=== PATIENT | male | born 1990 | race Caucasian/White ===

== ENCOUNTER 2017-04-09 13:59 | Emergency (ER) | payer BC ==
[2017-04-09 14:03] VITALS: BP 143/95; PULSE 82; RESP 18; TEMP 97.8
[2017-04-09] MEDS ORDERED: ACETAMINOPHEN TAB 325 MG TAB PO STA (14:16)
[2017-04-09] MEDS ORDERED: IBUPROFEN 600 MG TAB PO STA (14:16)
[2017-04-09] MEDS ORDERED: DIPH,PERTUS(ACELL)TETVAC-LF 0.5 ML VIAL IM ONE (14:34)
--- NOTE | 2017-04-09 14:46 | XR ---
EXAMINATION TYPE: XR finger LT DATE OF EXAM: 04/09/2017 COMPARISON: NONE HISTORY: Pain TECHNIQUE: 3 views FINDINGS: I see no fracture nor dislocation. Joint spaces are normal. There is no sign of a foreign b sumaya. IMPRESSION: Negative left thumb exam.
--- NOTE | 2017-04-09 14:51 | ED ---
Wound/Laceration HPI - General Chief Complaint: Wound/Laceration Stated Complaint: Hand laceration Time Seen by Provider: 04/09/17 14:07 Source: patient Mode of arrival: ambulatory Limitations: no limitations - History of Present Illness Initial Comments: 26-year-old male patient presents to the emergency department today for evaluation of left thumb laceration. Patient states that he was a box of with utility knife when he slipped and cut his thumb. He states the laceration does involve the nail. He was able to get the bleeding under control. Patient is quite anxious. He denies any difficulty with range of motion of the thumb. Denies any other injuries. Patient denies any headache, neck pain, back pain, chest pain, shortness of breath, dizziness, weakness, abdominal pain, nausea, vomiting, or difficulties with bowel movements or urination. - Related Data Allergies Allergy/AdvReac Type Severity Reaction Status Date / Time No Known Allergies Allergy Verified 04/09/17 14:03 Review of Systems ROS Statement: Those systems with pertinent positive or pertinent negative responses have been documented in the HPI. ROS Other: All systems not noted in ROS Statement are negative. Past Medical History Past Medical History: No Reported History History of Any Multi-Drug Resistant Organisms: None Reported Past Psychological History: No Psychological Hx Reported Smoking Status: Current every day smoker Past Alcohol Use History: None Reported Past Drug Use History: None Reported General Exam Limitations: no limitations General appearance: alert, in no apparent distress, anxious, other (This is a well-developed, well-nourished adult male patient in no acute distress. Vital signs upon presentation were temperature 97.8F, pulse 82, respirations 18, blood pressure 143/95, pulse ox 100% on room air.) Eye exam: Present: normal appearance, PERRL, EOMI. Absent: scleral icterus, conjunctival injection, periorbital swelling Respiratory exam: Present: normal lung sounds bilaterally. Absent: respiratory distress, wheezes, rales, rhonchi, stridor Cardiovascular Exam: Present: regular rate, normal rhythm, normal heart sounds. Absent: systolic murmur, diastolic murmur, rubs, gallop, clicks Extremities exam: Present: full ROM, normal capillary refill, other (Patient has a 2 cm laceration noted to the left thumb extending from the pad of the thumb into the nail. Bleeding is controlled at this time. Skin is otherwise pink, warm, and dry. Cap refills less than 3 seconds. Radial pulses 2+ and equal bilaterally.). Absent: normal inspection, tenderness, pedal edema, joint swelling, calf tenderness Neurological exam: Present: alert, oriented X3, CN II-XII intact Psychiatric exam: Present: normal affect, normal mood Skin exam: Present: warm, dry, intact, normal color. Absent: rash Course Vital Signs 04/09/17 14:01 Temperature 97.8 F Pulse Rate 82 Respiratory 18 Rate Blood Pressure 143/95 O2 Sat by Pulse 100 Oximetry Procedures - Laceration Laceration #1 Consent Obtained: verbal consent Indication: laceration Site: hand (Left thumb) Size (cm): 2 Description: linear Depth: simple, single layer (Involves nail) Anesthetic Used: lidocaine 1% Anesthesia Technique: local infiltration Amount (mls): 3 Pre-repair: irrigated extensively Type of Sutures: nylon Size of Sutures: 5-0 Number of Sutures: 4 Technique: simple, interrupted Patient Tolerated Procedure: well, no complications Medical Decision Making - Medical Decision Making 26-year-old male patient presented to the emergency department today for evaluation of lacerations of left thumb. Physical examination did reveal a 2 cm laceration to the left thumb that did involve the nailbed. The nail was left in place, laceration was repaired as documented. Patient tolerated the procedure well. He was educated regarding wound care and suture care. He is instructed to return in 7 days for removal of stitches. He is instructed to monitor for signs or symptoms of infection. He is instructed to follow-up with his primary care physician if necessary in 1-2 days. He is instructed to return here immediately for any new, worsening, or concerning symptoms. He verbalizes understanding and agrees with this plan. - Radiology Data Radiology results: report reviewed, image reviewed 3 views of the left upper obtained and showed no fracture nor dislocation. Joint spaces are normal. There is no sign of a foreign body. Impression by Dr. Thurman shows negative left thumb exam. Disposition Clinical Impression: Laceration without foreign body of left thumb with damage to nail, initial encounter Disposition: HOME SELF-CARE Condition: Good Instructions: Care For Your Stitches (ED), Finger Laceration (ED) Additional Instructions: Return in 7 days to have your stitches removed. Wash wound twice daily with warm water and antibacterial soap. Keep wound clean and dry. Do not submerge in water. Limit use of the left hand is much as possible. Monitor for signs or symptoms of infection including but not limited to redness, swelling, drainage of pus, fever, or chills. Follow up with her primary care physician as needed. Return here immediately for any new, worsening, or concerning symptoms. Referrals: Moises Willis DO [Primary Care Provider] - 1-2 days Time of Disposition: 14:51
== END 2017-04-09 15:12 | disposition home or self-care (01) ==
LOC: EC 13:59
DX: S61.112A Laceration without foreign body of left thumb with damage to nail, initial encounter (principal); F17.200 Nicotine dependence, unspecified, uncomplicated; Z23 Encounter for immunization; W26.0XXA Contact with knife, initial encounter; Y93.89 Activity, other specified
CPT/HCPCS: 12001; 90471; 90715; 99283

== ENCOUNTER 2017-12-04 12:07 | Emergency (ER) | payer BC ==
[2017-12-04 12:18] VITALS: BP 125/78; PULSE 67; RESP 18; TEMP 98.2
[2017-12-04] MEDS ORDERED: methylPREDNISolone SOD SUCCI 125 MG/2 ML VIAL IM ONE (12:28)
--- NOTE | 2017-12-04 12:47 | ED ---
General Adult HPI - General Chief complaint: Skin/Abscess/Foreign Body Stated complaint: RASH Time Seen by Provider: 12/04/17 12:19 Source: patient, RN notes reviewed, old records reviewed Mode of arrival: ambulatory Limitations: no limitations - History of Present Illness Initial comments: This is a 27-year-old male present emergency department complaint of rash for the past 2 days. Patient reports the rash initially started over the right antecubital fossa. He reports that it was very pruritic. He reports he try to wash it seems like the rash has not spread into his axilla, to the left arm., Groin, and his lower back. Patient reports he works in for; to (do) [employer]. He reports he cut down trees one week ago. He denies any fevers or chills. It up with a cortisone cream over the area with little relief. - Related Data Previous Rx's Medication Instructions Recorded Loratadine [Claritin] 10 mg PO DAILY #7 tab 12/04/17 diphenhydrAMINE [Benadryl] 25 mg PO TID PRN #20 capsule 12/04/17 predniSONE 50 mg PO DAILY #7 tablet 12/04/17 Allergies Allergy/AdvReac Type Severity Reaction Status Date / Time No Known Allergies Allergy Verified 04/09/17 14:03 Review of Systems ROS Statement: Those systems with pertinent positive or pertinent negative responses have been documented in the HPI. ROS Other: All systems not noted in ROS Statement are negative. Past Medical History Past Medical History: No Reported History History of Any Multi-Drug Resistant Organisms: None Reported Additional Past Surgical History / Comment(s): "varicillis vein" surgery to penis Past Psychological History: No Psychological Hx Reported Smoking Status: Current every day smoker Past Alcohol Use History: None Reported Past Drug Use History: None Reported General Exam - General Exam Comments Initial Comments: This Patient is a 27-year-old male. Alert and oriented. No acute distress. Limitations: no limitations General appearance: alert, in no apparent distress Head exam: Present: atraumatic, normocephalic, normal inspection Eye exam: Present: normal appearance, PERRL, EOMI. Absent: scleral icterus, conjunctival injection, periorbital swelling ENT exam: Present: normal exam, mucous membranes moist Neck exam: Present: normal inspection. Absent: tenderness, meningismus, lymphadenopathy Respiratory exam: Present: normal lung sounds bilaterally. Absent: respiratory distress, wheezes, rales, rhonchi, stridor Cardiovascular Exam: Present: regular rate, normal rhythm, normal heart sounds. Absent: systolic murmur, diastolic murmur, rubs, gallop, clicks GI/Abdominal exam: Present: soft, normal bowel sounds. Absent: distended, tenderness, guarding, rebound, rigid Extremities exam: Present: normal inspection, full ROM, normal capillary refill. Absent: tenderness, pedal edema, joint swelling, calf tenderness Back exam: Present: normal inspection Neurological exam: Present: alert, oriented X3, CN II-XII intact Psychiatric exam: Present: normal affect, normal mood Skin exam: Present: warm, dry, intact, normal color, rash (Erythematous macular rash with sporadic papules over the right forearm extending into the axilla. Across the chest and posterior aspect of his neck. He has evidence of the similar rash over the left forearm and axilla. Rash is consistent with the groin as well. 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 All the areas that Patient has a rash seemed to be exposed from where he could've been in contact with poison fidelia or other type the tree swellings work. He's bruits or masses extremity.. He did take a hot shower and seemed to make the rash worse. This demonstrated Patient to contact dermatitis most likely a reaction to poison fidelia or poison oak. Patient was given IM slight Medrol and prescription for steroids and antihistamines. Discussed close follow-up with primary care physician. Return parameters were discussed. Disposition Clinical Impression: Contact dermatitis Disposition: HOME SELF-CARE Condition: Good Instructions: Contact Dermatitis (ED), Poison Fidelia (ED) Additional Instructions: Patient advised to take the steroids as prescribed. Follow-up with primary care physician. Return to emergency department if any alarming signs or symptoms occur. Prescriptions: diphenhydrAMINE [Benadryl] 25 mg PO TID PRN #20 capsule PRN Reason: Itching Loratadine [Claritin] 10 mg PO DAILY #7 tab predniSONE 50 mg PO DAILY #7 tablet Is patient prescribed a controlled substance at d/c from ED?: No Referrals: Moises Willis DO [Primary Care Provider] - 1-2 days Time of Disposition: 12:41
== END 2017-12-04 12:57 | disposition home or self-care (01) ==
LOC: EC 12:07
DX: L25.9 Unspecified contact dermatitis, unspecified cause (principal); F17.200 Nicotine dependence, unspecified, uncomplicated
CPT/HCPCS: 99283; 96372; J2930

== ENCOUNTER 2022-11-18 15:46 | Emergency (ER) | payer BC ==
[2022-11-18 16:15] VITALS: TEMP 98.3
[2022-11-18] MEDS ORDERED: KETOROLAC 15 MG/ML 1 ML VIAL IM STA (16:30)
[2022-11-18] MEDS ORDERED: ONDANSETRON ODT 4 MG TAB PO STA (16:30)
[2022-11-18 18:18] LABS: Appearance,Urine Clear (Clear); Bilirubin,Urine Negative (Negative); Blood,Urine Negative (Negative); Color,Urine Light Red; Glucose,Urine (UA) Negative (Negative); Ketones,Urine 1+ (Negative); Leukocyte Esterase,Urine Small (Negative); Mucus,Urine Few /hpf; Nitrite,Urine Negative (Negative); Protein,Urine 1+ (Negative); RBC,Urine 6 /hpf (0-5); Specific Gravity,Urine 1.027 (1.001-1.035); Squamous Epithelial Cell,Urine <1 /hpf (0-4); Urobilinogen,Urine <2.0 mg/dL (<2.0); WBC,Urine 1 /hpf (0-5)
--- NOTE | 2022-11-18 19:14 | CT ---
EXAMINATION TYPE: CT abdomen pelvis wo con DATE OF EXAM: 11/18/2022 HISTORY: R flank pain CT DLP: 521.5 mGycm. Automated Exposure Control for Dose Reduction was Utilized. TECHNIQUE: CT scan of the abdomen and pelvis is performed without oral or IV contrast. COMPARISON: NONE FINDINGS: Within the limitations of a non-contrast study, the following observations are made. LUNG BASES: No significant abnormality is appreciated. LIVER/GB: No significant abnormality is appreciated. PANCREAS: No significant abnormality is seen. SPLEEN: No significant abnormality is seen. ADRENALS: No significant abnormality is seen. KIDNEYS: There is moderate right hydronephrosis and hydroureter down to the level of the sacral promo ntory where there is a 7 mm intraureteral calcification. The distal right ureter is unremarkable, as is the urinary bladder. The left kidney and left upper and lower collecting systems are normal. BOWEL: No significant abnormality is seen. GENITAL ORGANS: No gross abnormality seen. LYMPH NODES: No greater than 1cm abdominal or pelvic lymph nodes are appreciated. OSSEOUS STRUCTURES: No significant abnormality is seen. OTHER: No significant additional abnormality is seen. IMPRESSION: Moderate right obstructive uropathy secondary to 7 mm ureteral calcification at the level of the sacr al promontory.
--- NOTE | 2022-11-18 19:31 | ED ---
Abdominal Pain HPI - General Chief Complaint: Abdominal Pain Stated Complaint: R SideBack Pain, poss Kidney Stone Time Seen by Provider: 11/18/22 16:19 Source: patient Mode of arrival: ambulatory Limitations: no limitations - History of Present Illness Initial Comments: 32-year-old male presenting with chief complaint of right-sided flank pain and nausea. Patient has history of kidney stones. States this feels similar to previous kidney stones. No vomiting. No dysuria or hematuria. No chest pain or difficulty breathing. No fevers or chills. - Related Data Previous Rx's Medication Instructions Recorded Loratadine [Claritin] 10 mg PO DAILY #7 tab 12/04/17 diphenhydrAMINE [Benadryl] 25 mg PO TID PRN #20 capsule 12/04/17 predniSONE 50 mg PO DAILY #7 tablet 12/04/17 Ketorolac [Toradol] 10 mg PO Q6HR PRN #12 tab 11/18/22 Ondansetron Odt [Zofran Odt] 4 mg PO Q8HR PRN #20 tab 11/18/22 Tamsulosin [Flomax] 0.4 mg PO DAILY #10 cap 11/18/22 Allergies Allergy/AdvReac Type Severity Reaction Status Date / Time No Known Allergies Allergy Verified 11/18/22 16:14 Review of Systems ROS Statement: Those systems with pertinent positive or pertinent negative responses have been documented in the HPI. ROS Other: All systems not noted in ROS Statement are negative. Past Medical History Past Medical History: No Reported History Additional Past Medical History / Comment(s): kidney stones History of Any Multi-Drug Resistant Organisms: None Reported Additional Past Surgical History / Comment(s): "varicillis vein" surgery to penis Past Psychological History: No Psychological Hx Reported Smoking Status: Current every day smoker Past Alcohol Use History: Occasional Past Drug Use History: None Reported General Exam Limitations: no limitations General appearance: alert, in no apparent distress Head exam: Present: atraumatic, normocephalic, normal inspection Eye exam: Present: normal appearance, EOMI Neck exam: Present: normal inspection, full ROM Respiratory exam: Present: normal lung sounds bilaterally. Absent: respiratory distress, wheezes, rales, rhonchi, stridor Cardiovascular Exam: Present: regular rate, normal rhythm, normal heart sounds. Absent: systolic murmur, diastolic murmur, rubs, gallop, clicks GI/Abdominal exam: Present: soft, tenderness. Absent: distended, guarding, rebound, rigid Neurological exam: Present: alert, oriented X3, CN II-XII intact Psychiatric exam: Present: normal affect, normal mood Skin exam: Present: warm, dry, intact, normal color. Absent: rash Course Vital Signs 11/18/22 11/18/22 16:12 19:47 Temperature 98.3 F Pulse Rate 59 L 74 Respiratory 20 18 Rate Blood Pressure 121/84 158/90 O2 Sat by Pulse 97 99 Oximetry Medical Decision Making - Medical Decision Making Was pt. sent in by a medical professional or institution (, PA, OPTICAL SYSTEMS ENGINEER, urgent care, hospital, or longterm...) When possible be specific @ -No Did you speak to anyone other than the patient for history (EMS, parent, family, police, friend...)? What history was obtained from this source @ -No Did you review nursing and triage notes (agree or disagree)? Why? @ -I reviewed and agree with nursing and triage notes Were old charts reviewed (outside hosp., previous admission, EMS record, old EKG, old radiological studies, urgent care reports/EKG's, longterm records)? Report findings @ -No old charts were reviewed Differential Diagnosis (chest pain, altered mental status, abdominal pain women, abdominal pain men, vaginal bleeding, weakness, fever, dyspnea, syncope, headache, dizziness, GI bleed, back pain, seizure, CVA, palpatations, mental health, musculoskeletal)? @ -MDM Differential Abdominal Pain Men: Appendicitis, cholecystitis, diverticulosis, ischemic bowel, pancreatitis, hepatitis, UTI, gastroenteritis, AAA, incarcerated hernia, bowel obstruction, constipation, inflammatory bowel, hepatitis, peptic ulcer disease, splenic infarction, perforated viscus, testicular torsion... This is not meant to be an all-inclusive list EKG interpreted by me (3pts min.). @ -As above X-rays interpreted by me (1pt min.). @ -None done CT interpreted by me (1pt min.). @ -Moderate right obstructive uropathy secondary to 7 mm ureteral calcification at the level of the sacral promontory U/S interpreted by me (1pt. min.). @ -None done What testing was considered but not performed or refused? (CT, X-rays, U/S, labs)? Why? @ -None What meds were considered but not given or refused? Why? @ -None Did you discuss the management of the patient with other professionals (professionals i.e. , PA, OPTICAL SYSTEMS ENGINEER, lab, RT, psych nurse, medical social worker, botany technician, teacher, hydrological technical officer, briefcase sewer)? Give summary @ -No Was smoking cessation discussed for >3mins.? @ -No Was critical care preformed (if so, how long)? @ -No Were there social determinants of health that impacted care today? How? (Homelessness, low income, unemployed, alcoholism, drug addiction, transportation, low edu. Level, literacy, decrease access to med. care, prison, rehab)? @ -No Was there de-escalation of care discussed even if they declined (Discuss DNR or withdrawal of care, Hospice)? DNR status @ -No What co-morbidities impacted this encounter? (DM, HTN, Smoking, COPD, CAD, Cancer, CVA, ARF, Chemo, Hep., AIDS, mental health diagnosis, sleep apnea, morbid obesity)? @ -None Was patient admitted / discharged? Hospital course, mention meds given and route, prescriptions, significant lab abnormalities, going to OR and other pertinent info. @ -32-year-old male presents chief complaint of right-sided flank pain. History of kidney stones. Urine shows [address] showed a 7 mm stone. On reassessment patient reports improvement in his pain after Toradol and Zofran. He'll be discharged with Toradol, Zofran, and Flomax. Follow-up with PCP. Report back to ER with any new or worsening symptoms. Discussed return parameters and answered all questions. Patient conveyed verbal understanding and agreed to the plan. I discussed this case in detail with my attending Dr. Aj Undiagnosed new problem with uncertain prognosis? @ -No Drug Therapy requiring intensive monitoring for toxicity (Heparin, Nitro, Insulin, Cardizem)? @ -No Were any procedures done? @ -No Diagnosis/symptom? @ -Kidney stone Acute, or Chronic, or Acute on Chronic? @ -Acute Uncomplicated (without systemic symptoms) or Complicated (systemic symptoms)? @ -Uncomplicated Side effects of treatment? @ -No Exacerbation, Progression, or Severe Exacerbation? @ -No Poses a threat to life or bodily function? How? (Chest pain, [place], [place], pneumonia, PE, COPD, DKA, ARF, appy, cholecystitis, CVA, Diverticulitis, Homicidal, Suicidal, threat to staff... and all critical care pts) @ -No - Lab Data Lab Results 11/18/22 Range/Units 17:24 Urine Color Light Red Urine Appearance Clear (Clear) Urine pH 6.0 (5.0-8.0) Ur Specific [place] 1.027 (1.001-1.035) Urine Protein 1+ H (Negative) Urine Glucose (UA) Negative (Negative) Urine Ketones 1+ H (Negative) Urine Blood Negative (Negative) Urine Nitrite Negative (Negative) Urine Bilirubin Negative (Negative) Urine Urobilinogen <2.0 (<2.0) mg/dL Ur Leukocyte Esterase Small H (Negative) Urine RBC 6 H (0-5) /hpf Urine WBC 1 (0-5) /hpf Ur Squamous Epith Cells <1 (0-4) /hpf Urine Mucus Few H (None) /hpf Disposition Clinical Impression: Kidney stone Disposition: HOME SELF-CARE Condition: Good Instructions (If sedation given, give patient instructions): Kidney Stones (ED) Additional Instructions: Follow-up with PCP. Report back to ER with any new or worsening symptoms. Take medication as prescribed. Prescriptions: Tamsulosin [Flomax] 0.4 mg PO DAILY #10 cap Ketorolac [Toradol] 10 mg PO Q6HR PRN #12 tab PRN Reason: Pain Ondansetron Odt [Zofran Odt] 4 mg PO Q8HR PRN #20 tab PRN Reason: Nausea Is patient prescribed a controlled substance at d/c from ED?: No Referrals: None,Stated [Primary Care Provider] - 1-2 days Time of Disposition: 19:30
[2022-11-18 19:49] VITALS: BP 158/90; PULSE 74; RESP 18
== END 2022-11-18 19:49 | disposition home or self-care (01) ==
LOC: EC 15:46
DX: N20.0 Calculus of kidney (principal); F17.200 Nicotine dependence, unspecified, uncomplicated
CPT/HCPCS: 81001; 74176; 99284; 96372; J1885

== ENCOUNTER 2023-04-22 16:11 | Emergency (ER) | payer BC ==
[2023-04-22] MEDS ORDERED: METOCLOPRAMIDE 5 MG/ML 2 ML VIAL IVP STA (16:35)
[2023-04-22] MEDS ORDERED: KETOROLAC 15 MG/ML 1 ML VIAL IVP STA (16:36)
[2023-04-22] MEDS ORDERED: HYDROmorphone 0.5 MG/0.5 ML SYRINGE IVP STA ×2 (17:14→20:01)
[2023-04-22] MEDS ORDERED: SODIUM CHLORIDE 0.9% 1,000 ML IV STA (17:17)
[2023-04-22 17:45] LABS: HCT 42.3 % (39.0-53.0); MCH 31.9 pg (25.0-35.0); MCHC 35.4 g/dL (31.0-37.0); MCV 90.1 fL (80.0-100.0); Mean Platelet Volume 7.7; Platelet Count 270 k/uL (150-450); RBC 4.69 m/uL (4.30-5.90); RDW 11.7 % (11.5-15.5); WBC 13.8 k/uL (3.8-10.6)
[2023-04-22 17:53] LABS: ALT 61 U/L (4-49); AST 41 U/L (17-59); African American GFR (CKD) >90 (>60 ml/min/1.73 sqM); Albumin 4.6 g/dL (3.5-5.0); Alkaline Phosphatase 80 U/L (38-126); Anion Gap 14 mmol/L; Blood Urea Nitrogen 13 mg/dL (9-20); Calcium 9.8 mg/dL (8.4-10.2); Carbon Dioxide 23 mmol/L (22-30); Chloride 102 mmol/L (98-107); Glucose 128 mg/dL (74-99); Non-African American GFR(CKD) >90 (>60 ml/min/1.73 sqM); Potassium 4.1 mmol/L (3.5-5.1); Sodium 139 mmol/L (137-145); Total Bilirubin 1.6 mg/dL (0.2-1.3); Total Protein 7.9 g/dL (6.3-8.2)
--- NOTE | 2023-04-22 18:14 | CT ---
EXAMINATION TYPE: CT abdomen pelvis wo con DATE OF EXAM: 04/22/2023 COMPARISON: 11/18/2022 INDICATION: right side flank pain. hx of kidney stones. DLP: 570.2 mGycm, Automated exposure control for dose reduction was used. CONTRAST: 0 mL of Isovue 300. Study performed without Oral Contrast TECHNIQUE: Axial images were obtained from above the diaphragm to the pubic rami in the axial plane a t 5 mm thick sections. Reconstructed images are reviewed on the computer in the coronal plane. FINDINGS: Limited CT sections are obtained the lung bases. The lung bases are clear. CT ABDOMEN: Liver: Normal Spleen: Normal Pancreas: Normal Adrenal glands: The adrenal glands are normal. Gallbladder: Normal Kidneys: No masses are evident. There is a large right hydronephrosis with moderate hydroureter. Hydr oureter extends to the right ureterovesical junction. There is an obstructing 0.6 cm distal right ur eteral vesicle junction stone. No cysts are present. There is a nonobstructing punctate renal stone inferior pole left kidney Aorta: Normal Inferior vena cava: Normal. CT PELVIS: Loops of bowel within the abdomen and pelvis are normal. This study is without oral contrast limi ting follow-up evaluation. Appendix: Not identified. No dilated tubular structure or inflammatory change is evident. Urinary bladder: Normal. Genitourinary structures: Prostate is normal Osseous structures: No suspicious lytic or sclerotic lesions evident. IMPRESSION: 1. Marked right hydronephrosis and moderate right hydroureter secondary to an obstructing 0.6 cm daniel cification at the right ureteropelvic junction. 2. Punctate nonobstructing inferior pole left renal stone.
[2023-04-22 18:49] VITALS: RESP 18
[2023-04-22 20:25] LABS: Appearance,Urine Clear (Clear); Bilirubin,Urine Negative (Negative); Blood,Urine Moderate (Negative); Color,Urine Light Yellow; Glucose,Urine (UA) Negative (Negative); Ketones,Urine 1+ (Negative); Leukocyte Esterase,Urine Negative (Negative); Mucus,Urine Rare /hpf; Nitrite,Urine Negative (Negative); Protein,Urine Negative (Negative); RBC,Urine 7 /hpf (0-5); Specific Gravity,Urine 1.019 (1.001-1.035); Urobilinogen,Urine <2.0 mg/dL (<2.0); WBC,Urine 2 /hpf (0-5)
[2023-04-22] MEDS ORDERED: ACET/COD 300 MG/30 MG STARTER PACK 6 TAB BTL PO STA (21:06)
--- NOTE | 2023-04-22 21:06 | ED ---
Abdominal Pain HPI - General Chief Complaint: Abdominal Pain Stated Complaint: kidney stones Time Seen by Provider: 04/22/23 17:13 Source: patient, RN notes reviewed Mode of arrival: ambulatory Limitations: no limitations - History of Present Illness Initial Comments: Patient is a 32-year-old male presented ER with chief complaint of right flank pain. Patient states this started earlier today and is just increased. Patient does have a history of kidney stones. Patient endorses associated nausea and chills. Patient denies dysuria or frequency. He does state that he is having difficulty urinating. Patient also is reporting suprapubic abdominal pain. Patient denies any constipation/diarrhea, chest pain, shortness of breath, or fevers. - Related Data Previous Rx's Medication Instructions Recorded Loratadine [Claritin] 10 mg PO DAILY #7 tab 12/04/17 diphenhydrAMINE [Benadryl] 25 mg PO TID PRN #20 capsule 12/04/17 predniSONE 50 mg PO DAILY #7 tablet 12/04/17 Ketorolac [Toradol] 10 mg PO Q6HR PRN #12 tab 11/18/22 Ondansetron Odt [Zofran Odt] 4 mg PO Q8HR PRN #20 tab 11/18/22 Tamsulosin [Flomax] 0.4 mg PO DAILY #10 cap 11/18/22 Tamsulosin [Flomax] 0.4 mg PO DAILY #7 cap 04/22/23 Allergies Allergy/AdvReac Type Severity Reaction Status Date / Time No Known Allergies Allergy Verified 04/22/23 16:28 Review of Systems ROS Statement: Those systems with pertinent positive or pertinent negative responses have been documented in the HPI. ROS Other: All systems not noted in ROS Statement are negative. Past Medical History Past Medical History: No Reported History Additional Past Medical History / Comment(s): kidney stones History of Any Multi-Drug Resistant Organisms: None Reported Additional Past Surgical History / Comment(s): "varicillis vein" surgery to penis Past Psychological History: No Psychological Hx Reported Smoking Status: Current every day smoker Past Alcohol Use History: Occasional Past Drug Use History: None Reported General Exam Limitations: no limitations General appearance: alert, in no apparent distress Head exam: Present: atraumatic, normocephalic, normal inspection Respiratory exam: Present: normal lung sounds bilaterally. Absent: respiratory distress, wheezes, rales, rhonchi, stridor Cardiovascular Exam: Present: regular rate, normal rhythm, normal heart sounds. Absent: systolic murmur, diastolic murmur, rubs, gallop, clicks GI/Abdominal exam: Present: soft, tenderness (suprapubic), normal bowel sounds Back exam: Present: CVA tenderness (R) Neurological exam: Present: alert, oriented X3, CN II-XII intact Psychiatric exam: Present: normal affect, normal mood Skin exam: Present: warm, dry, intact, normal color. Absent: rash Course Vital Signs 04/22/23 04/22/23 04/22/23 16:25 18:39 20:00 Temperature 98.4 F Pulse Rate 66 85 93 Respiratory 22 18 18 Rate Blood Pressure 154/97 143/86 143/83 O2 Sat by Pulse 97 99 98 Oximetry Medical Decision Making - Medical Decision Making Was pt. sent in by a medical professional or institution (, PA, CLINICAL STATISTICS MANAGER, urgent care, hospital, or [facility]...) When possible be specific @ -No Did you speak to anyone other than the patient for history (EMS, parent, family, police, friend...)? What history was obtained from this source @ -No Did you review nursing and triage notes (agree or disagree)? Why? @ -I reviewed and agree with nursing and triage notes Were old charts reviewed (outside hosp., previous admission, EMS record, old EKG, old radiological studies, urgent care reports/EKG's, [facility] records)? Report findings @ -No old charts were reviewed Differential Diagnosis (chest pain, altered mental status, abdominal pain women, abdominal pain men, vaginal bleeding, weakness, fever, dyspnea, syncope, he adache, dizziness, GI bleed, back pain, seizure, CVA, palpatations, mental health, musculoskeletal)? @ -Differential Back Pain: Strain, zoster, cauda equina syndrome, epidural abs cess, vertebral osteomyelitis, discitis, fracture, subluxation, disc herniation, DJD, spinal stenosis, dissection, AAA, pancreatitis, peptic ulcer disease, pyelonephritis, kidney stone, this is not meant to be an all-inclusive list. EKG interpreted by me (3pts min.). @ -None X-rays interpreted by me (1pt min.). @ -None done CT interpreted by me (1pt min.). @ -CT abdomen and pelvis shows right hydronephrosis and hydroureterosis with a 0.6 cm calcification at the right ureteropelvic junction. There is a nonobstructing renal stone on the left. U/S interpreted by me (1pt. min.). @ -None done What testing was considered but not performed or refused? (CT, X-rays, U/S, labs)? Why? @ -None What meds were considered but not given or refused? Why? @ -None Did you discuss the management of the patient with other professionals (professionals i.e. , PA, CLINICAL STATISTICS MANAGER, lab, RT, psych nurse, dialysis social worker, line construction engineer, teacher, strike operations officer, shoe caser)? Give summary @ -No Was smoking cessation discussed for >3mins.? @ -No Was critical care preformed (if so, how long)? @ -No Were there social determinants of health that impacted care today? How? (Homelessness, low income, unemployed, alcoholism, drug addiction, transportation, low edu. Level, literacy, decrease access to med. care, [facility], rehab)? @ -No Was there de-escalation of care discussed even if they declined (Discuss DNR or withdrawal of care, Hospice)? DNR status @ -No What co-morbidities impacted this encounter? (DM, HTN, Smoking, COPD, CAD, Cancer, CVA, ARF, Chemo, Hep., AIDS, mental health diagnosis, sleep apnea, morbid obesity)? @ -None Was patient admitted / discharged? Hospital course, mention meds given and route, prescriptions, significant lab abnormalities, going to OR and other pertinent info. @ -Discharge. Patient is a 32-year-old male presented ER with chief complaint of right flank pain. Vital stable. History and physical exam were completed. Labs obtained in the ER showed WBC 13.6, bilirubin 1.6, and ALT 61. Urinalysis is showing signs of nephrolithiasis. CT abdomen/pelvis shows a 6mm stone at the ureteropelvic junction. Patient was started on IV fluids and pain medication, with improvement. I discussed lab and imaging findings with the patient. All questions answered. Patient will be prescribed Flomax and discharged with a Normal starter pack. Return parameters were discussed. Patient be discharged in stable condition with follow-up to PCP. Patient's past understanding and agreement with care plan. Undiagnosed new problem with uncertain prognosis? @ -No Drug Therapy requiring intensive monitoring for toxicity (Heparin, Nitro, Insulin, Cardizem)? @ -No Were any procedures done? @ -No Diagnosis/symptom? @ -Obstructing nephrolithiasis Acute, or Chronic, or Acute on Chronic? @ -Acute Uncomplicated (without systemic symptoms) or Complicated (systemic symptoms)? @ -Uncomplicated Side effects of treatment? @ -No Exacerbation, Progression, or Severe Exacerbation? @ -No Poses a threat to life or bodily function? How? (Chest pain, USA, SD, pneumonia, PE, COPD, DKA, ARF, appy, cholecystitis, CVA, Diverticulitis, Homicidal, Suicidal, threat to staff... and all critical care pts) @ -No - Lab Data Result diagrams: 04/22/23 17:25 04/22/23 17:25 Lab Results 04/22/23 04/22/23 04/22/23 Range/Units 17:25 17:25 17:25 WBC 13.8 H (3.8-10.6) k/uL RBC 4.69 (4.30-5.90) m/uL Hgb 15.0 (13.0-17.5) gm/dL Hct 42.3 (39.0-53.0) % MCV 90.1 (80.0-100.0) fL MCH 31.9 (25.0-35.0) pg MCHC 35.4 (31.0-37.0) g/dL RDW 11.7 (11.5-15.5) % Plt Count 270 (150-450) k/uL MPV 7.7 Sodium 139 (137-145) mmol/L Potassium 4.1 (3.5-5.1) mmol/L Chloride 102 (98-107) mmol/L Carbon Dioxide 23 (22-30) mmol/L Anion Gap 14 mmol/L BUN 13 (9-20) mg/dL Creatinine 1.04 (0.66-1.25) mg/dL Est GFR (CKD-EPI)AfAm >90 (>60 ml/min/1.73 sqM) Est GFR (CKD-EPI)NonAf >90 (>60 ml/min/1.73 sqM) Glucose 128 H (74-99) mg/dL Plasma Lactic Acid Alvaro 1.1 (0.7-2.0) mmol/L Calcium 9.8 (8.4-10.2) mg/dL Total Bilirubin 1.6 H (0.2-1.3) mg/dL AST 41 (17-59) U/L ALT 61 H (4-49) U/L Alkaline Phosphatase 80 (38-126) U/L Total Protein 7.9 (6.3-8.2) g/dL Albumin 4.6 (3.5-5.0) g/dL Urine Color Urine Appearance (Clear) Urine pH (5.0-8.0) Ur Specific Wing (1.001-1.035) Urine Protein (Negative) Urine Glucose (UA) (Negative) Urine Ketones (Negative) Urine Blood (Negative) Urine Nitrite (Negative) Urine Bilirubin (Negative) Urine Urobilinogen (<2.0) mg/dL Ur Leukocyte Esterase (Negative) Urine RBC (0-5) /hpf Urine WBC (0-5) /hpf Urine Mucus (None) /hpf 04/22/23 Range/Units 17:25 WBC (3.8-10.6) k/uL RBC (4.30-5.90) m/uL Hgb (13.0-17.5) gm/dL Hct (39.0-53.0) % MCV (80.0-100.0) fL MCH (25.0-35.0) pg MCHC (31.0-37.0) g/dL RDW (11.5-15.5) % Plt Count (150-450) k/uL MPV Sodium (137-145) mmol/L Potassium (3.5-5.1) mmol/L Chloride (98-107) mmol/L Carbon Dioxide (22-30) mmol/L Anion Gap mmol/L BUN (9-20) mg/dL Creatinine (0.66-1.25) mg/dL Est GFR (CKD-EPI)AfAm (>60 ml/min/1.73 sqM) Est GFR (CKD-EPI)NonAf (>60 ml/min/1.73 sqM) Glucose (74-99) mg/dL Plasma Lactic Acid Alvaro (0.7-2.0) mmol/L Calcium (8.4-10.2) mg/dL Total Bilirubin (0.2-1.3) mg/dL AST (17-59) U/L ALT (4-49) U/L Alkaline Phosphatase (38-126) U/L Total Protein (6.3-8.2) g/dL Albumin (3.5-5.0) g/dL Urine Color Light Yellow Urine Appearance Clear (Clear) Urine pH 6.0 (5.0-8.0) Ur Specific Wing 1.019 (1.001-1.035) Urine Protein Negative (Negative) Urine Glucose (UA) Negative (Negative) Urine Ketones 1+ H (Negative) Urine Blood Moderate H (Negative) Urine Nitrite Negative (Negative) Urine Bilirubin Negative (Negative) Urine Urobilinogen <2.0 (<2.0) mg/dL Ur Leukocyte Esterase Negative (Negative) Urine RBC 7 H (0-5) /hpf Urine WBC 2 (0-5) /hpf Urine Mucus Rare H (None) /hpf - Radiology Data Radiology results: report reviewed, image reviewed Disposition Clinical Impression: Nephrolithiasis, Ureterolithiasis Disposition: HOME SELF-CARE Condition: Stable Additional Instructions: Please follow-up with PCP. Return to ER for any new or worsening symptoms. Prescriptions: Tamsulosin [Flomax] 0.4 mg PO DAILY #7 cap Is patient prescribed a controlled substance at d/c from ED?: No Referrals: None,Stated [Primary Care Provider] - 1-2 days Time of Disposition: 21:06
[2023-04-22 21:45] VITALS: BP 140/80; PULSE 78; TEMP 98.8
== END 2023-04-22 21:34 | disposition home or self-care (01) ==
LOC: EC 16:11
DX: N13.2 Hydronephrosis with renal and ureteral calculous obstruction (principal); F17.200 Nicotine dependence, unspecified, uncomplicated
CPT/HCPCS: 36415; 80053; 83605; 85027; 81001; 74176; 99284; 96374; 96376; 96361; J1170